=== PATIENT | female | born 1985 | race Two or more races ===

== ENCOUNTER 2020-03-27 15:21 | Emergency (ER) | payer OTHER ==
[~2020-03-27] VITALS: Ht 160 cm; Wt 95.5 kg
[~2020-03-27 15:21] MED LIST: NAPR-682 PO; ORPH100T PO
[2020-03-27 16:10] VITALS: BP 159/102
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
== END 2020-03-27 17:46 | disposition home or self-care (01) ==
LOC: ER 15:21
DX: S00.83XA Contusion of other part of head, initial encounter (principal); S70.12XA Contusion of left thigh, initial encounter; Z98.51 Tubal ligation status; V98.8XXA Other specified transport accidents, initial encounter; Y93.89 Activity, other specified; Y92.413 State road as the place of occurrence of the external cause; Y99.8 Other external cause status
CPT/HCPCS: 73562; 73590; 81025; 99284